=== PATIENT | male | born 1965 | race Caucasian/White ===

== ENCOUNTER 2022-02-28 17:00 | Inpatient (IN) | payer MEDICARE, SELFPAY ==
--- NOTE | ~2022-02-28 | US_ITS ---
EXAMINATION: US VENOUS ULTRASOUND WITH DOPPLER LOWER EXTREMITY, RIGHT CLINICAL INFORMATION: Swelling, pain, erythema COMPARISON: None TECHNIQUE: Ultrasound of the deep veins is performed from the hip to the calf with compression sonography and color and pulse Doppler assessment. Spectral analysis with color-flow imaging is performed. FINDINGS: There is normal venous compression and respiratory variation and augmented flow. The visualized common femoral vein, superficial femoral vein, profunda femoral vein, popliteal vein, and the trifurcation region shows no evidence of deep venous thrombosis. There is no significant popliteal fossa cyst. . If the patient's symptoms persist, followup ultrasound in 5 days 7 days might be of value to exclude proximal propagation from a non-visualized calf vein. Prominent right groin lymph node measuring 1.2 cm in short axis. Ultrasound of the left common femoral vein demonstrates normal flow. Nonspecific left groin lymph node measuring 0.6 cm in short axis. US/US venous duplex LE RT IMPRESSION: No DVT demonstrated in the right lower extremity. If the patient's symptoms persist, followup ultrasound in 5 days 7 days might be of value to exclude proximal propagation from a non-visualized calf vein. Nonspecific prominent right groin lymph node.
--- NOTE | ~2022-02-28 | US_ITS ---
EXAMINATION: US EXTRACRANIAL CAROTID DUPLEX, BILATERAL CLINICAL INFORMATION: CVA. COMPARISON: None TECHNIQUE: Real-time ultrasound and Doppler techniques (integrating B-mode 2-D vascular images, Doppler spectral analysis and color-flow Doppler imaging) were utilized to interrogate the extracranial carotid arteries, the vertebral arteries and proximal subclavian arteries bilaterally. The degree of stenosis is determined by criteria similar to NASCET. FINDINGS: Right Side: 1. There is mild atherosclerotic plaque seen in the bifurcation/proximal ICA region. 2. The common carotid artery PSV proximally is 96 cm/s and distally 105 cm/s. 3. The proximal internal carotid artery velocities are 111 cm/s systolic and 33 cm/s diastolic. 4. The proximal external carotid artery PSV is 205 cm/s. 5. The vertebral artery shows antegrade flow. 6. The subclavian artery waveforms appear unremarkable. Left Side: 1. There is mild atherosclerotic plaque seen in the bifurcation/proximal ICA region. 2. The common carotid artery PSV proximally is 140 cm/s and distally 127 cm/s. 3. The proximal internal carotid artery velocities are 121 cm/s systolic and 26 cm/s diastolic. 4. The proximal external carotid artery PSV is 22 cm/s. 5. The vertebral artery shows antegrade flow. 6. The subclavian artery waveforms appear unremarkable. US/US carotid duplex BI IMPRESSION: 1. RIGHT: Minimal, non-hemodynamically significant stenosis of the proximal right internal carotid artery corresponding to a 0-49% stenosis by velocity criteria. 2. LEFT: Minimal, non-hemodynamically significant stenosis of the proximal left internal carotid artery corresponding to a 0-49% stenosis by velocity criteria.
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
--- NOTE | ~2022-02-28 | MR_ITS ---
EXAMINATION: MR BRAIN WITHOUT CONTRAST CLINICAL INFORMATION: Stroke. COMPARISON: CT head from 03/10/2022. TECHNIQUE: MRI of the brain was obtained using routine sequences without contrast. FINDINGS: Significantly motion degraded exam. Within the limitations of this exam, there appears to be regions of restricted diffusion involving the deep white matter of the left parietal lobe, left hill radiata/caudate body, and potentially paramedian left thalamus. Associated T2 FLAIR hyperintensity in this distribution. No no overt evidence of associated hemorrhagic transformation. No additional restricted diffusion. There is a region of chronic encephalomalacia involving the right hill radiata, caudate head, and lentiform nucleus with hemosiderin staining. Chronic lacunar infarcts of the cerebellum. No evidence of acute hemorrhagic products on heme-sensitive imaging. Findings are superimposed on scattered periventricular, deep white matter, and brainstem T2 FLAIR hyperintensities consistent with mild to moderate underlying microangiopathy. Proportional prominence of the ventricles and sulcal spaces without evidence of obstructive hydrocephalus. No abnormal mass effect. No midline shift. Normal appearance of the pituitary gland. Normal positioning of the cerebellar tonsils. Normal arterial and venous vascular flow voids are present. Normal, homogeneous marrow signal. Mild mucosal thickening of the paranasal sinuses. No signal abnormalities within the mastoids. MR/MR head/brain wo con IMPRESSION: Significantly motion degraded exam. Within this limitation, there appears to be acute to subacute infarcts involving the deep white matter of the left parietal lobe, left hill radiata/caudate body, and potentially paramedian left thalamus. No evidence of hemorrhagic transformation. Chronic lacunar infarcts of the right hill radiata and caudate/lentiform nuclei as well as the cerebellum. Mild to moderate underlying microangiopathy and generalized cerebral volume loss.
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
[2022-02-28 17:18] VITALS: BP 172/88; PULSE 102; RESP 18; TEMP 37; O2SAT 98; BMI 21.4
[2022-02-28 17:38] LABS: MANUAL DIFF FLAG NO
[2022-02-28 17:40] LABS: Basophils Percent Auto 0.3 % (0-2); Eosinophils Percent Auto 0.4 % (0-4); Hematocrit 37.3 % (42.0-52.0); Hemoglobin 12.4 g/dl (14.0-18.0); Imm Gran Abs Auto 0.03 X10*3/uL (0.00-0.03); Imm Gran Pct Auto 0.4 % (0.0-0.4); Lymphocytes Absolute Auto 1.2 X10*3/uL (1.2-4.9); Lymphocytes Percent Auto 17.3 % (20-40); Mean Corpuscular HGB Conc 33.2 g/dl (31.0-36.0); Mean Corpuscular Hemoglobin 28.4 pg (27.0-33.0); Mean Corpuscular Volume 85.4 fL (80.0-98.0); Mean Platelet Volume 9.8 fL (9.4-12.4); Monocytes Absolute Auto 0.3 X10*3/uL (0.1-1.2); Monocytes Percent Auto 4.3 % (2-11); Neutrophils Absolute Auto 5.4 x10*3/uL (2.0-8.3); Neutrophils Percent Auto 77.3 % (45-73); Platelet Count 279 X10*3/uL (160-400); Red Blood Count 4.37 X10*6/uL (4.60-5.80); Red Cell Distribution Width 14.7 % (11.0-16.0)
[2022-02-28 17:45] LABS: Prothrombin Time 11.8 SEC (10.0-13.1)
[2022-02-28 17:56] LABS: COVID-19 Test Negative (Negative); IDNOW Serial# 16C4AD1C; IDNOW Serial# BCCEAD1C; Influenza A Negative (Negative); Influenza B2 Negative (Negative)
[2022-02-28 18:00] LABS: B Type Natriuretic Peptide 22 pg/mL (<100)
[2022-02-28 18:07] LABS: Alanine Aminotransferase 45 U/L (0-40); Albumin Level 4.2 g/dL (3.5-5.0); Alkaline Phosphatase 195 U/L (39-117); Anion Gap 13 (12-20); Aspartate Amino Transferase 23 U/L (5-37); Bilirubin Direct < 0.2 mg/dL (0.0-0.5); Bilirubin Total 0.2 mg/dL (0.0-1.0); Blood Urea Nitrogen 16 mg/dL (9-16); Calcium 9.8 mg/dL (8.4-10.2); Carbon Dioxide 29 mmol/L (22-29); Chloride 97 mmol/L (96-108); Creatinine Clr Calc Pharmacy 80.4; Estimated Glomerular Filt Rate > 60; Glucose Random 548 mg/dL (60-115); Magnesium 2.1 mg/dL (1.6-2.6); Sodium 135 mmol/L (135-145); Total Protein 6.7 g/dL (6.5-8.0)
--- NOTE | 2022-02-28 19:09 | ECG_ITS ---
Test Reason : SEPSIS PROTOCOL Blood Pressure : / mmHG Vent. Rate : 098 BPM Atrial Rate : 098 BPM P-R Int : 146 ms QRS Dur : 072 ms QT Int : 328 ms P-R-T Axes : 056 015 139 degrees QTc Int : 418 ms Normal sinus rhythm T wave abnormality, consider anterolateral ischemia Abnormal ECG No previous ECGs available Referred By: Gena Kinsey Electronically Signed By:Carrington Bautista
[2022-02-28 19:39] LABS: Ammonia 34 umol/L (13-55)
[2022-02-28 19:56] LABS: Ethanol < 10 mg/dL; Magnesium 1.9 mg/dL (1.6-2.6)
--- NOTE | 2022-02-28 19:59 | PHA.MEDREC ---
Pharmacy Consult ? Medication Reconciliation Pharmacy has completed the medication reconciliation. spoke with patient in the ED who said he has not taken any medication in over a year but is supposed to be on BP med, insulin, water pill etc. Patient states he fills all of his mediactions at [facility]. Called [facility] and the patient had about 4 profiles with no medications in any of the profiles.
[2022-02-28 20:05] LABS: Troponin-I High Sensitivity 334.5 ng/L (<3.5-35.0)
[2022-02-28] MEDS: PHENobarbitaL 200 MG, PHENobarbitaL 60 MG 260 MG PO (20:08)
[2022-02-28] MEDS: Insulin Lispro 100 UNIT/ML 3 ML VIAL 12 UNIT SUBCUT (20:08)
[2022-02-28 20:20] LABS: Appearance Urine Clear; Color Urine Yellow; Glucose Urine UA >=1000 mg/dL (Negative); Leukocyte Esterase Urine Negative (Negative); Nitrite Urine Negative (Negative); Specific Gravity - Urine >= 1.030 (1.005-1.025); UMIC TRIGGER UACC YES; Urine Blood Negative (Negative); Urine Ketones Negative (Negative); Urine Protein Negative (Neg-Trace)
--- NOTE | 2022-02-28 20:22 | PC.NURSE ---
this rn assumed care of pt at 1900. iv placed. pt brought down to ct. this rn noticed blood cultures not placed. this rn discussed with eric [employer] provider states does want blood cultures drawn. orders placed. creating delay in administration of iv antibiotic.
[2022-02-28 20:28] LABS: Amphetamine Screen Urine Not Detected (Not Detect); Barbiturates, Urine Not Detected (Not Detect); Benzodiazepines Screen Urine Not Detected (Not Detect); Cannabinoid Screen Urine Not Detected (Not Detect); Cocaine Screen Urine Not Detected (Not Detect); Fentanyl, urine Not Detected (Not Detect); Opiate Screen Urine Not Detected (Not Detect); Phencyclidine Screen Urine Not Detected (Not Detect)
[2022-02-28 20:39] LABS: Bacteria Urine None Seen (None Seen); Hyaline Casts Urine 0-2 /LPF (0-2); RBC Urine 0-2 /HPF (0-2); Squamous Epithelial Cell Urine 0-2 /HPF (0-2); WBC Urine 0-5 /HPF (0-5)
[2022-02-28] MEDS: cefTRIAXone sodium 1 GM in 0.9 % Sodium Chloride 50 ML IV (20:39)
[2022-02-28 20:40] VITALS: BP 162/97; PULSE 102; RESP 18; TEMP 37.7; O2SAT 97
[2022-02-28 20:55] LABS: Lactic Acid 1.3 mmol/L (0.5-2.0)
[2022-02-28 21:15] LABS: Glucose, Whole Blood 272 mg/dL (60-115)
--- NOTE | 2022-02-28 21:19 | PC.NURSE ---
poc recheck 272, provider dejuan zarco notified. no new orders at this time
[2022-02-28 21:29] LABS: Troponin-I High Sensitivity 362.1 ng/L (<3.5-35.0)
[2022-02-28 21:46] VITALS: BP 151/85; PULSE 109; RESP 20; TEMP 36.9; O2SAT 97
--- NOTE | 2022-02-28 21:55 | PC.NURSE ---
this rn called pharmacy regarding status of thiamine. pharmacy states they are mixing now and will bring med down to ed shortly
[2022-02-28] MEDS: Thiamine HCL 500 MG in 0.9 % Sodium Chloride 100 ML 210 MG IV (22:33)
--- NOTE | 2022-02-28 22:39 | MHC.EDTECH ---
[phone] called [facility]. I was not able to speak to anyone because it was an automated service. I followed the chain of numbers to get to patient records. The answering service said the were closed and to call back during their normal business hours. I was able to leave a message including the patients name, and asked them to include any lab information, discharge summary and EKGs. The answering service said it could take up to 24 hours to get information back.
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
[2022-03-01] VITALS (9 sets, daily range): BP systolic 124–162; BP diastolic 73–91; PULSE 88–112; RESP 10–20; TEMP 36.4–37.1; O2SAT 93–97
[2022-03-01] MEDS: Aspirin Enteric Coated 81 MG TABLET.DR PO ×2 (00:15→08:32)
[2022-03-01] MEDS: cephALEXin 500 MG CAPSULE PO ×4 (00:15→23:37)
[2022-03-01] MEDS: Acetaminophen 325 MG TABLET 650 MG PO (00:16)
--- NOTE | 2022-03-01 00:24 | PC.NURSE ---
pt resting comfortably at this time. pt medicated according to apr.. pt provided with sandwich and orange juice at this time pt verbalizes no new needs
--- NOTE | 2022-03-01 00:32 | MHC.EDTECH ---
Call out to [facility] @0017, transferred to ER due to Medical Records closed at night. Sent Medical Release form to
--- NOTE | 2022-03-01 02:12 | PC.NURSE ---
pt medicated according to apr. pt provided blanket at this time. HOB lowered. pt states no new needs at this time
--- NOTE | 2022-03-01 06:27 | PC.NURSE ---
pt incontinent of urine. this rn and edge drummer changed bed linens and brief at this time. seizure precautions remain in place.
[2022-03-01] MEDS: Enoxaparin Sodium 40 MG/0.4 ML SYRINGE SUBCUT (06:41)
[2022-03-01 06:47] LABS: MANUAL DIFF FLAG NO
[2022-03-01 06:56] LABS: Basophils Percent Auto 0.3 % (0-2); Eosinophils Absolute Auto 0.1 X10*3/uL (0.0-0.4); Eosinophils Percent Auto 0.7 % (0-4); Hematocrit 34.4 % (42.0-52.0); Hemoglobin 11.6 g/dl (14.0-18.0); Imm Gran Abs Auto 0.02 X10*3/uL (0.00-0.03); Imm Gran Pct Auto 0.3 % (0.0-0.4); Lymphocytes Absolute Auto 1.6 X10*3/uL (1.2-4.9); Mean Corpuscular HGB Conc 33.7 g/dl (31.0-36.0); Mean Corpuscular Hemoglobin 28.2 pg (27.0-33.0); Mean Corpuscular Volume 83.5 fL (80.0-98.0); Mean Platelet Volume 10.1 fL (9.4-12.4); Monocytes Absolute Auto 0.3 X10*3/uL (0.1-1.2); Monocytes Percent Auto 4.6 % (2-11); Neutrophils Absolute Auto 4.8 x10*3/uL (2.0-8.3); Neutrophils Percent Auto 70.1 % (45-73); Platelet Count 238 X10*3/uL (160-400); Red Blood Count 4.12 X10*6/uL (4.60-5.80); Red Cell Distribution Width 14.6 % (11.0-16.0); White Blood Count 6.8 X10*3/uL (4.8-10.8)
[2022-03-01 07:22] LABS: Anion Gap 12 (12-20); Blood Urea Nitrogen 18 mg/dL (9-16); Carbon Dioxide 24 mmol/L (22-29); Chloride 101 mmol/L (96-108); Estimated Glomerular Filt Rate > 60; Glucose Random 323 mg/dL (60-115); Potassium 4.4 mmol/L (3.3-5.1); Sodium 133 mmol/L (135-145)
[2022-03-01 07:23] LABS: Cholesterol 160 mg/dL; HDL Cholesterol 37 mg/dL; LDL Cholesterol Calculated 106 mg/dl; Triglycerides 89 mg/dL
[2022-03-01 07:35] LABS: Calcium 8.8 mg/dL (8.4-10.2)
[2022-03-01 07:36] LABS: Troponin-I High Sensitivity 320.1 ng/L (<3.5-35.0)
[2022-03-01 08:20] LABS: Glucose, Whole Blood 395 mg/dL (60-115)
[2022-03-01] MEDS: PHENobarbitaL 15 MG TABLET 45 MG PO ×2 (08:31→20:14)
[2022-03-01] MEDS: Thiamine HCL 100 MG TABLET PO (08:32)
[2022-03-01] MEDS: Folic Acid 1 MG TABLET PO (08:32)
[2022-03-01] MEDS: Atorvastatin Calcium 80 MG TABLET PO (08:32)
[2022-03-01] MEDS: Insulin Lispro 100 UNIT/ML 3 ML VIAL SUBCUT ×4 (08:32→20:16)
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
[2022-03-01] MEDS: Thiamine HCL 200 MG in 0.9 % Sodium Chloride 100 ML 204 MG IV ×3 (09:56→20:17)
--- NOTE | 2022-03-01 10:54 | MHC.CM.PN ---
Patient is here with Encephalopathy and increased Confusion and ETOH Withdrawal; CM spoke with Sister/Sultana at listed #. Patient was just kicked out of a [place] [facility] r/t his Urinary Incontinence and came to this area where his Parents and Sister live (none of whom are able to provide significant support ). PT is recommending STR and Sultana approved the initiation of a broad SNF search. Patient will need Addiction Medicine referral. CM has initiated and will follow for dc planning. Sultana believes that Patient has received some covid vax but she is unsure of his PCP situation.
[2022-03-01 13:57] LABS: Glucose, Whole Blood 293 mg/dL (60-115)
--- NOTE | 2022-03-01 14:18 | PM.EVENT ---
Event Note Date of Service: 03/01/22 Event Note: Patient already seen and examined by hospitalist team this morning. Seen and examined again, mental status somewhat improving Answering simple questions Physical exam: Unchanged from H&P except mental status is alert oriented x2 at least, follow simple questions and commands. Moves all extremities. Assessment and plan coordinated in H&P note. MRI pending, neurology consult also pending. cardiology eval also pending -denies any chest pain,trops flat in 320 range on asa ,statin alcohol abuse : mild tremers continue pheonbarbital, thiamine ,folic acid Time Spent With Patient Time: Total time managing care of this patient today ____ minutes.
[2022-03-01 16:34] LABS: Glucose, Whole Blood 309 mg/dL (60-115)
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
[2022-03-01 19:42] LABS: Glucose, Whole Blood 279 mg/dL (60-115)
[2022-03-02] VITALS (7 sets, daily range): BP systolic 121–140; BP diastolic 66–84; PULSE 80–103; RESP 14–17; TEMP 36.1–36.9; O2SAT 95–98
[2022-03-02] MEDS: Enoxaparin Sodium 40 MG/0.4 ML SYRINGE SUBCUT (05:42)
--- NOTE | 2022-03-02 07:00 | CA_ITS ---
Transthoracic Echocardiogram Patient (Last, First, Middle): Sukumar Correa, Gender: Male Date of : 1965 Age: 56 Procedure Date: 03/02/2022 Procedure Type: Transthoracic Echocardiogram Location: [facility] Height: 172.72 cm Weight: 63.96 kg BSA: 1.76 m2 Heart Rate: bpm BP: 140 / 83 mmHg Audio Narrator: Referring MD: Juanjose Archer MD Symptoms: CVA, please do bubble Study Quality: Excellent ECG Rhythm: Sinus Conclusions: - Normal left ventricular cavity size. There is mildly increased left ventricular wall thickness. The left ventricular systolic function is normal. The visually estimated ejection fraction is between 60-65%. - Normal right ventricular cavity size and systolic function. - The left atrium is normal in size. There is no evidence of interatrial shunt by color Doppler and contrast. The right atrium is normal in size. Findings Left Ventricle Normal left ventricular cavity size. There is mildly increased left ventricular wall thickness. The left ventricular systolic function is normal. The visually estimated ejection fraction is between 60-65%. There is no evidence of regional wall motion abnormalities. Diastolic function is normal for age. Right Ventricle Normal right ventricular cavity size and systolic function. Atria The left atrium is normal in size. There is no evidence of interatrial shunt by color Doppler and contrast. The right atrium is normal in size. Aortic Valve Normal aortic valve structure and function. There is no aortic valve stenosis. There is no aortic valve regurgitation. Mitral Valve Normal mitral valve structure and function. There is trace mitral valve regurgitation. There is no mitral valve stenosis. Pulmonic Valve Normal pulmonic valve structure and function. There is no pulmonic valve regurgitation. Tricuspid Valve Normal tricuspid valve structure and function. There is trace tricuspid valve regurgitation. Normal right atrial pressure. There is no evidence of pulmonary hypertension. Great Vessels All visible segments of the aorta are normal in size. The visualized portions of the pulmonary artery and branches are normal. Venous The inferior vena cava is normal in size and collapses greater than 50% with inspiration. Pericardium/Pleural There is no evidence of pericardial effusion. Prior Study Comparison No prior study available for comparison. Measurements 2D Linear Measurements IVSd: 1.25 0.6-0.9/0.6-1.0 cm LVIDd: 3.72 3.9-5.3/4.2-5.9 cm LVIDd Index: 2.11 2.4-3.2/2.2-3.1 cm/m2 LVIDs: 2.37 2.0-3.6 cm LVPWd: 1.25 0.7-1.1 cm Ao Root: 2.60 2.1-3.5 cm LA Diam: 3.20 2.7-3.8/3.0-4.0 cm LAIDs Index: 1.82 1.5-2.3 cm/m2 LV Mass: 196.73 67-162/88-224 g LV Mass Index: 111.78 43-95/49-115 g/m2 LVOT Diam: 2.00 3.0+(-)1.3 cm Mitral Valve MV Pk E: 0.87 MV PK A: 1.03 MV Decel Time: 132.00 E/A: 0.80 E'Lateral: 11.30 E'Medial: 8.05 E/E' Med: 10.80 E/E' Lat: 7.70 PHT: 39.00 MVA PHT: 5.64 Decel Caldwell: 6.58 Aortic Valve AoV Pk Jonathan: 1.95 AoV Mn Jonathan: 1.32 AoV VTI: 0.36 AoV Pk Grad: 15.00 Aov Mn Grad: 8.00 JALEESA Cont.VTI: 2.11 LVOT LVOT Pk Jonathan: 1.22 LVOT Mn Jonathan: 0.77 LVOT VTI: 0.24 LVOT Pk Grad: 6.00 LVOT Mn Grad: 3.00 LVOT Diam: 2.00 LVOT Area: 3.14 Diastolic Function MV Pk E: 0.87 MV Pk A: 1.03 E/A: 0.80 E'Medial: 8.05 E/E' Med: 10.80 E' Laterial: 11.30 E/E' Lat: 7.70 Right Ventricle TAPSE (mm): 23.00 TVS' Jonathan: 11.00 Tricuspid Valve TR Pk Jonathan: 1.91 TR Pk Grad: 15.00 RA Press: 3.00 RVSP: 18.00 Great Vessels Aorta Ao Root-2D: 2.60 2.0-3.7 cm Ao Asc: 2.60 2.1-3.4 cm Pulmonary Valve PV Pk Jonathan: 1.01 Peak PV Grad: 4.00 Updated in Other Vendor System with Status of Final Carrington Bautista MD electronically signed on 03/02/2022 2:35:59 PM with status of Final
[2022-03-02 07:10] LABS: Glucose, Whole Blood 237 mg/dL (60-115)
[2022-03-02] MEDS: Atorvastatin Calcium 80 MG TABLET PO (07:30)
[2022-03-02] MEDS: Aspirin Enteric Coated 81 MG TABLET.DR PO (07:31)
[2022-03-02] MEDS: Folic Acid 1 MG TABLET PO (07:31)
[2022-03-02] MEDS: Insulin Lispro 100 UNIT/ML 3 ML VIAL SUBCUT ×3 (07:31→20:28)
[2022-03-02] MEDS: cephALEXin 500 MG CAPSULE PO ×3 (07:31→22:05)
[2022-03-02] MEDS: PHENobarbitaL 15 MG TABLET 45 MG PO ×2 (07:31→20:30)
[2022-03-02] MEDS: Thiamine HCL 200 MG in 0.9 % Sodium Chloride 100 ML 204 MG IV ×3 (07:32→22:05)
--- NOTE | 2022-03-02 08:34 | P.CDIC_ITS ---
CDI Concurrent Query Documentation Clarification: PHYSICIAN'S DOCUMENTATION REQUEST Date of Query: 03/02/22 0835 Patient Name: Sukumar Correa Admit Date: 03/01/22 Dear Doctor, A review of the medical record indicates additional documentation may be needed. Please review below and update the documentation accordingly. Clinical Indicators: Risk Factors/Clinical Indicators/Treatments H&P 03/01 - Encephalopathy possibly 2nd to alcohol abuse as well as acute on chronic infarct. Increased confusion, alert only to self, not alert to place and time, does not know where he is. Was traveling got confused along with the way, doesn't know how he got to his sisters house. Event note 03/01 - unchanged from H&P except mental status is alert and oriented. Based on the above, please further specify, in the Progress Notes, the known or suspected type of the documented encephalopathy: POA, Resolved - * Metabolic * Toxic * Toxic metabolic * Alcoholic * Other (please specify) * Unable to determine Use of terms such as suspected, likely, concern for, or probable (associated with a specific diagnosis that is being evaluated, monitored, or treated as if it exists) are acceptable and can be coded in the inpatient setting, when documented at the time of discharge. Thank you, Mouna Brumfield [facility], CDIS Extension: [phone] Please use your independent medical judgment in providing your response. THIS QUERY IS PART OF THE PERMANENT MEDICAL RECORD Provider Response: Other Other Diagnosis: Toxic metabolic encephalopathy
[2022-03-02 11:32] LABS: Glucose, Whole Blood 394 mg/dL (60-115)
--- NOTE | 2022-03-02 14:08 | MHC.STROKE ---
Addendum entered by Mesha Guadarrama RN 03/02/22 14:18: WE ALSO DISCUSSED SMOKING CESSATION AND I WOULD RECOMMEND A NICOTINE PATCH IF HE AGREES. Original Note: I MET WITH THE PATIENT TODAY TO DISCUSS HIS STROKE DIAGNOSIS AND MRI RESULTS. HE HAD A RECENT STROKE WHILE HE WAS IN [place], THIS TIME HE HAS ANOTHER SMAL ACUTE STROKE ON THE LEFT. I DID EXPLAIN THIS TO HIM. WE DISCUSSED HIS RISK FACTORS AND COMPLIANCE. I DISCUSSED THIS WITH CASE MGT. AND ASKED DR HUTCHISON FOR A CARE TEAM CONSULT FOR ETOH. I ANSWERED HIS QUESTIONS, HE WAS VERY COOPERATIVE AND RECEPTIVE. I WILL CONTINUE TO FOLLOW.
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
--- NOTE | 2022-03-02 15:39 | MHC.CM.PN ---
per rounds pt not dc ready will conitue to follow
[2022-03-02 16:12] LABS: Glucose, Whole Blood 144 mg/dL (60-115)
[2022-03-02] MEDS: metFORMIN HCl 500 MG TABLET PO (17:19)
[2022-03-02 20:19] LABS: Glucose, Whole Blood 327 mg/dL (60-115)
[2022-03-03] VITALS (7 sets, daily range): BP systolic 115–138; BP diastolic 62–79; PULSE 77–103; RESP 16–18; TEMP 36.4–37; O2SAT 94–97
[2022-03-03 07:34] LABS: Glucose, Whole Blood 353 mg/dL (60-115)
[2022-03-03] MEDS: Thiamine HCL 200 MG in 0.9 % Sodium Chloride 100 ML 204 MG IV ×3 (08:13→22:00)
[2022-03-03] MEDS: Insulin Lispro 100 UNIT/ML 3 ML VIAL SUBCUT ×4 (08:13→20:36)
[2022-03-03] MEDS: Aspirin Enteric Coated 81 MG TABLET.DR PO (08:14)
[2022-03-03 08:15] LABS: Hemoglobin A1c % > 14.0 %
[2022-03-03] MEDS: PHENobarbitaL 15 MG TABLET PO ×2 (08:15→20:37)
[2022-03-03] MEDS: metFORMIN HCl 500 MG TABLET PO ×2 (08:15→16:51)
[2022-03-03] MEDS: cephALEXin 500 MG CAPSULE PO ×3 (08:15→22:00)
[2022-03-03] MEDS: Folic Acid 1 MG TABLET PO (08:15)
[2022-03-03] MEDS: Atorvastatin Calcium 80 MG TABLET PO (08:15)
--- NOTE | 2022-03-03 11:11 | MHC.CM.PN ---
Per ROUNDS discussion, Patient is medically cleared for dc to rehab; CM has referred to [facility] and CM will continue to follow.
[2022-03-03 11:32] LABS: Glucose, Whole Blood 286 mg/dL (60-115)
[2022-03-03] MEDS: glipiZIDE 5 MG TABLET PO ×2 (12:50→16:51)
--- NOTE | 2022-03-03 14:43 | MHC.CM.PN ---
CM assisted Patient in completing a HCP.
[2022-03-03 15:22] LABS: Glucose, Whole Blood 249 mg/dL (60-115)
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
[2022-03-03 19:51] LABS: Glucose, Whole Blood 297 mg/dL (60-115)
[2022-03-04 03:59] VITALS: BP 128/64; PULSE 80; RESP 20; TEMP 37.2; O2SAT 97
[2022-03-04] MEDS: Enoxaparin Sodium 40 MG/0.4 ML SYRINGE SUBCUT (05:14)
[2022-03-04 07:11] VITALS: BP 136/79; PULSE 87; RESP 16; TEMP 36.7; O2SAT 93
[2022-03-04 07:27] LABS: Glucose, Whole Blood 252 mg/dL (60-115)
[2022-03-04] MEDS: glipiZIDE 5 MG TABLET PO (07:42)
[2022-03-04] MEDS: Atorvastatin Calcium 80 MG TABLET PO (07:42)
[2022-03-04] MEDS: Folic Acid 1 MG TABLET PO (07:42)
[2022-03-04] MEDS: Insulin Lispro 100 UNIT/ML 3 ML VIAL SUBCUT ×4 (07:42→20:49)
[2022-03-04] MEDS: Aspirin Enteric Coated 81 MG TABLET.DR PO (07:43)
[2022-03-04] MEDS: cephALEXin 500 MG CAPSULE PO ×3 (07:43→20:50)
[2022-03-04] MEDS: metFORMIN HCl 500 MG TABLET PO ×2 (07:43→17:16)
[2022-03-04] MEDS: PHENobarbitaL 15 MG TABLET PO ×2 (07:43→20:50)
[2022-03-04] MEDS: Thiamine HCL 200 MG in 0.9 % Sodium Chloride 100 ML 204 MG IV ×2 (09:45→17:15)
[2022-03-04 10:59] LABS: Glucose, Whole Blood 263 mg/dL (60-115)
[2022-03-04 11:09] VITALS: BP 131/74; PULSE 82; RESP 16; TEMP 36.3; O2SAT 97
[2022-03-04] MEDS: Nicotine 21 MG PATCH.TD24 TRANSDERMA (11:58)
--- NOTE | 2022-03-04 13:00 | MHC.RECOVRN ---
Met with pt in 454 to discuss alcohol use. Pt laying in bed, awake and easily engages in conversation. Pt reports drinking 30 beers plus leonela x 3-4 days. Is unable to recall how long he has been drinking, however, reports it has been most of his life. Pt reports having moved to [place] from [place] about a week ago. Denies tx for AUD in the past. Pt denies attempting to abstain or reduce use. Pt provided with recovery resources and supports. Recovery Team available if needed further.
[2022-03-04 15:43] VITALS: BP 125/75; PULSE 89; RESP 18; TEMP 36.4; O2SAT 94
[2022-03-04 16:02] LABS: Glucose, Whole Blood 262 mg/dL (60-115)
[2022-03-04] MEDS: glipiZIDE 5 MG TABLET 7.5 MG PO (17:16)
[2022-03-04 20:00] VITALS: BP 132/72; PULSE 87; RESP 18; TEMP 36.9; O2SAT 97
[2022-03-04 20:41] LABS: Glucose, Whole Blood 314 mg/dL (60-115)
[2022-03-04] MEDS: Thiamine HCL 100 MG TABLET PO (20:49)
[2022-03-04 23:37] VITALS: BP 149/83; PULSE 88; RESP 18; TEMP 36.4; O2SAT 97
[2022-03-05] MEDS: Zolpidem Tartrate 5 MG TABLET PO (02:18)
[2022-03-05 03:35] VITALS: BP 138/64; PULSE 65; RESP 18; TEMP 37.1; O2SAT 96
[2022-03-05] MEDS: Enoxaparin Sodium 40 MG/0.4 ML SYRINGE SUBCUT (05:47)
[2022-03-05 07:03] VITALS: BP 117/69; PULSE 78; RESP 20; TEMP 36.4; O2SAT 94
[2022-03-05 07:25] LABS: Glucose, Whole Blood 228 mg/dL (60-115)
[2022-03-05] MEDS: Insulin Lispro 100 UNIT/ML 3 ML VIAL SUBCUT ×4 (08:21→20:07)
[2022-03-05] MEDS: Nicotine 21 MG PATCH.TD24 TRANSDERMA (08:21)
[2022-03-05] MEDS: Thiamine HCL 100 MG TABLET PO ×2 (08:23→20:08)
[2022-03-05] MEDS: metFORMIN HCl 500 MG TABLET PO (08:23)
[2022-03-05] MEDS: glipiZIDE 5 MG TABLET 7.5 MG PO (08:23)
[2022-03-05] MEDS: Aspirin Enteric Coated 81 MG TABLET.DR PO (08:23)
[2022-03-05] MEDS: cephALEXin 500 MG CAPSULE PO ×3 (08:23→22:34)
[2022-03-05] MEDS: Folic Acid 1 MG TABLET PO (08:23)
[2022-03-05] MEDS: Atorvastatin Calcium 80 MG TABLET PO (08:23)
[2022-03-05] MEDS: PHENobarbitaL 15 MG TABLET PO (08:24)
[2022-03-05 10:44] VITALS: BP 116/73; PULSE 76; RESP 20; TEMP 37.1; O2SAT 97
[2022-03-05 11:10] LABS: Glucose, Whole Blood 247 mg/dL (60-115)
[2022-03-05] MEDS: metFORMIN HCl 850 MG TABLET PO ×2 (12:11→17:06)
[2022-03-05 15:35] VITALS: BP 128/77; PULSE 83; RESP 19; TEMP 36.3; O2SAT 96
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
[2022-03-05 15:58] LABS: Glucose, Whole Blood 269 mg/dL (60-115)
[2022-03-05] MEDS: glipiZIDE 10 MG TABLET PO (17:06)
[2022-03-05 19:33] VITALS: BP 131/71; PULSE 84; RESP 19; TEMP 36.7; O2SAT 98
[2022-03-05 19:36] LABS: Glucose, Whole Blood 256 mg/dL (60-115)
[2022-03-05] MEDS: Acetaminophen 325 MG TABLET 650 MG PO (20:08)
[2022-03-05 23:32] VITALS: BP 123/68; PULSE 79; RESP 18; TEMP 37; O2SAT 97
[2022-03-06 03:20] VITALS: BP 134/68; PULSE 68; RESP 20; TEMP 37; O2SAT 99
[2022-03-06] MEDS: Enoxaparin Sodium 40 MG/0.4 ML SYRINGE SUBCUT (06:02)
[2022-03-06 07:04] VITALS: BP 125/66; PULSE 77; RESP 20; TEMP 36.9; O2SAT 97
[2022-03-06 07:29] LABS: Glucose, Whole Blood 307 mg/dL (60-115)
[2022-03-06] MEDS: metFORMIN HCl 850 MG TABLET PO ×2 (07:40→17:13)
[2022-03-06] MEDS: glipiZIDE 10 MG TABLET PO ×2 (07:40→17:13)
[2022-03-06] MEDS: Thiamine HCL 100 MG TABLET PO ×2 (07:40→20:44)
[2022-03-06] MEDS: Folic Acid 1 MG TABLET PO (07:40)
[2022-03-06] MEDS: Atorvastatin Calcium 80 MG TABLET PO (07:40)
[2022-03-06] MEDS: PHENobarbitaL 15 MG TABLET PO (07:40)
[2022-03-06] MEDS: Aspirin Enteric Coated 81 MG TABLET.DR PO (07:40)
[2022-03-06] MEDS: cephALEXin 500 MG CAPSULE PO ×3 (07:41→23:51)
[2022-03-06] MEDS: Nicotine 21 MG PATCH.TD24 TRANSDERMA (07:41)
[2022-03-06] MEDS: Insulin Lispro 100 UNIT/ML 3 ML VIAL SUBCUT ×3 (07:41→21:51)
[2022-03-06] MEDS: Acetaminophen 325 MG TABLET 650 MG PO (07:50)
[2022-03-06 10:59] VITALS: BP 128/80; PULSE 97; RESP 20; TEMP 37.3; O2SAT 98
[2022-03-06 11:19] LABS: Glucose, Whole Blood 118 mg/dL (60-115)
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
[2022-03-06 15:31] LABS: Glucose, Whole Blood 302 mg/dL (60-115)
[2022-03-06 15:48] VITALS: BP 119/71; PULSE 84; RESP 19; TEMP 36.2; O2SAT 97
[2022-03-06 20:00] VITALS: BP 119/70; PULSE 94; RESP 18; TEMP 36.2; O2SAT 100
[2022-03-06 20:51] LABS: Glucose, Whole Blood 280 mg/dL (60-115)
[2022-03-06 23:54] VITALS: BP 142/74; PULSE 89; RESP 18; TEMP 37.1; O2SAT 98
[2022-03-07 04:00] VITALS: BP 149/76; PULSE 83; RESP 20; TEMP 36.4; O2SAT 98
[2022-03-07] MEDS: Enoxaparin Sodium 40 MG/0.4 ML SYRINGE SUBCUT (06:19)
[2022-03-07 07:22] VITALS: BP 117/69; PULSE 83; RESP 20; TEMP 36.9; O2SAT 98
[2022-03-07 07:56] LABS: Glucose, Whole Blood 250 mg/dL (60-115)
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
[2022-03-07] MEDS: Thiamine HCL 100 MG TABLET PO ×2 (08:55→20:10)
[2022-03-07] MEDS: Aspirin Enteric Coated 81 MG TABLET.DR PO (08:55)
[2022-03-07] MEDS: metFORMIN HCl 850 MG TABLET PO ×2 (08:55→16:38)
[2022-03-07] MEDS: glipiZIDE 10 MG TABLET PO ×2 (08:55→16:39)
[2022-03-07] MEDS: cephALEXin 500 MG CAPSULE PO ×3 (08:55→23:33)
[2022-03-07] MEDS: Atorvastatin Calcium 80 MG TABLET PO (08:55)
[2022-03-07] MEDS: Nicotine 21 MG PATCH.TD24 TRANSDERMA (08:56)
[2022-03-07] MEDS: Insulin Lispro 100 UNIT/ML 3 ML VIAL SUBCUT ×4 (08:56→20:10)
[2022-03-07] MEDS: Folic Acid 1 MG TABLET PO (08:56)
[2022-03-07 11:17] VITALS: BP 114/70; PULSE 96; RESP 20; TEMP 36.9; O2SAT 100
[2022-03-07 11:22] LABS: Glucose, Whole Blood 348 mg/dL (60-115)
--- NOTE | 2022-03-07 12:56 | MHC.CM.PN ---
pt is ready for dc bed search continues
[2022-03-07 14:54] VITALS: BP 131/60; PULSE 90; RESP 20; TEMP 36.7; O2SAT 96
[2022-03-07 16:13] LABS: Glucose, Whole Blood 324 mg/dL (60-115)
[2022-03-07 19:08] VITALS: BP 120/65; PULSE 86; RESP 20; TEMP 36.3; O2SAT 97
[2022-03-07 19:49] LABS: Glucose, Whole Blood 278 mg/dL (60-115)
[2022-03-07 23:37] VITALS: BP 131/86; PULSE 89; RESP 20; TEMP 37; O2SAT 100
[2022-03-08 03:11] VITALS: BP 133/74; PULSE 88; RESP 20; TEMP 36.4; O2SAT 99
[2022-03-08] MEDS: Enoxaparin Sodium 40 MG/0.4 ML SYRINGE SUBCUT (05:54)
[2022-03-08 06:47] LABS: Creatinine Clr Calc Pharmacy 94.3; Estimated Glomerular Filt Rate > 60
[2022-03-08 07:17] VITALS: BP 125/71; PULSE 76; RESP 17; TEMP 36.8; O2SAT 98
[2022-03-08 07:47] LABS: Glucose, Whole Blood 232 mg/dL (60-115)
[2022-03-08] MEDS: Thiamine HCL 100 MG TABLET PO ×2 (08:09→20:41)
[2022-03-08] MEDS: Aspirin Enteric Coated 81 MG TABLET.DR PO (08:09)
[2022-03-08] MEDS: metFORMIN HCl 850 MG TABLET PO ×2 (08:09→16:29)
[2022-03-08] MEDS: glipiZIDE 10 MG TABLET PO ×2 (08:09→16:29)
[2022-03-08] MEDS: Nicotine 21 MG PATCH.TD24 TRANSDERMA (08:09)
[2022-03-08] MEDS: Folic Acid 1 MG TABLET PO (08:09)
[2022-03-08] MEDS: Atorvastatin Calcium 80 MG TABLET PO (08:09)
[2022-03-08] MEDS: cephALEXin 500 MG CAPSULE PO ×2 (08:09→16:29)
[2022-03-08] MEDS: Insulin Lispro 100 UNIT/ML 3 ML VIAL SUBCUT ×4 (08:10→20:41)
[2022-03-08 09:28] VITALS: PULSE 99
[2022-03-08 11:22] LABS: Glucose, Whole Blood 260 mg/dL (60-115)
[2022-03-08 11:38] VITALS: BP 120/86; PULSE 74; RESP 18; TEMP 36.6; O2SAT 98
[2022-03-08 15:28] LABS: Glucose, Whole Blood 389 mg/dL (60-115)
[2022-03-08 15:33] VITALS: BP 123/68; PULSE 88; RESP 16; TEMP 36.6; O2SAT 96
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
[2022-03-08 20:00] VITALS: BP 130/73; PULSE 93; RESP 20; TEMP 36.8; O2SAT 100
[2022-03-08 21:12] LABS: Glucose, Whole Blood 359 mg/dL (60-115)
[2022-03-09] VITALS (7 sets, daily range): BP systolic 119–146; BP diastolic 63–75; PULSE 70–95; RESP 16–20; TEMP 36.3–36.8; O2SAT 95–100
[2022-03-09] MEDS: cephALEXin 500 MG CAPSULE PO ×4 (00:27→23:48)
[2022-03-09] MEDS: Acetaminophen 325 MG TABLET 650 MG PO ×2 (00:30→20:30)
--- NOTE | 2022-03-09 00:51 | PC.NURSE ---
2030; Bedtime poc 359, per sliding scale [address] Ewing made aware, no additional insulin at this time.
[2022-03-09] MEDS: Enoxaparin Sodium 40 MG/0.4 ML SYRINGE SUBCUT (05:59)
[2022-03-09 07:48] LABS: Glucose, Whole Blood 225 mg/dL (60-115)
[2022-03-09] MEDS: Insulin Lispro 100 UNIT/ML 3 ML VIAL SUBCUT ×4 (08:01→20:27)
[2022-03-09] MEDS: Atorvastatin Calcium 80 MG TABLET PO (08:01)
[2022-03-09] MEDS: metFORMIN HCl 850 MG TABLET PO ×2 (08:01→17:15)
[2022-03-09] MEDS: glipiZIDE 10 MG TABLET PO ×2 (08:02→17:15)
[2022-03-09] MEDS: Nicotine 21 MG PATCH.TD24 TRANSDERMA (08:02)
[2022-03-09] MEDS: Aspirin Enteric Coated 81 MG TABLET.DR PO (08:02)
[2022-03-09] MEDS: Thiamine HCL 100 MG TABLET PO ×2 (08:02→20:27)
[2022-03-09] MEDS: Folic Acid 1 MG TABLET PO (08:02)
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
[2022-03-09 11:40] LABS: Glucose, Whole Blood 313 mg/dL (60-115)
[2022-03-09 16:33] LABS: Glucose, Whole Blood 346 mg/dL (60-115)
[2022-03-09 20:22] LABS: Glucose, Whole Blood 194 mg/dL (60-115)
[2022-03-10] VITALS (7 sets, daily range): BP systolic 104–146; BP diastolic 56–77; PULSE 77–98; RESP 16–20; TEMP 36.6–36.9; O2SAT 97–100
[2022-03-10 07:40] LABS: Glucose, Whole Blood 225 mg/dL (60-115)
[2022-03-10] MEDS: Folic Acid 1 MG TABLET PO (08:19)
[2022-03-10] MEDS: Atorvastatin Calcium 80 MG TABLET PO (08:19)
[2022-03-10] MEDS: metFORMIN HCl 850 MG TABLET PO ×2 (08:19→16:45)
[2022-03-10] MEDS: cephALEXin 500 MG CAPSULE PO ×2 (08:19→16:45)
[2022-03-10] MEDS: Thiamine HCL 100 MG TABLET PO ×2 (08:19→20:24)
[2022-03-10] MEDS: glipiZIDE 10 MG TABLET PO ×2 (08:19→16:45)
[2022-03-10] MEDS: Nicotine 21 MG PATCH.TD24 TRANSDERMA (08:19)
[2022-03-10] MEDS: Aspirin Enteric Coated 81 MG TABLET.DR PO (08:19)
[2022-03-10] MEDS: Insulin Lispro 100 UNIT/ML 3 ML VIAL SUBCUT ×4 (08:20→20:25)
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
[2022-03-10 10:57] LABS: Glucose, Whole Blood 262 mg/dL (60-115)
[2022-03-10 15:47] LABS: Glucose, Whole Blood 154 mg/dL (60-115)
[2022-03-10 19:44] LABS: Glucose, Whole Blood 339 mg/dL (60-115)
[2022-03-11] VITALS (7 sets, daily range): BP systolic 118–143; BP diastolic 62–77; PULSE 76–97; RESP 16–20; TEMP 36.4–37.1; O2SAT 95–99
--- NOTE | 2022-03-11 07:18 | MHC.CM.PN ---
PT is no longer recommending STR but indicates that Patient is interested in [facility]). Recovery Team/Heidi appears to already be involved and CM will continue to follow.
[2022-03-11 07:24] LABS: Glucose, Whole Blood 286 mg/dL (60-115)
[2022-03-11] MEDS: metFORMIN HCl 850 MG TABLET PO ×2 (07:56→16:50)
[2022-03-11] MEDS: Atorvastatin Calcium 80 MG TABLET PO (07:56)
[2022-03-11] MEDS: Aspirin Enteric Coated 81 MG TABLET.DR PO (07:56)
[2022-03-11] MEDS: Folic Acid 1 MG TABLET PO (07:56)
[2022-03-11] MEDS: glipiZIDE 10 MG TABLET PO ×2 (07:56→16:50)
[2022-03-11] MEDS: Nicotine 21 MG PATCH.TD24 TRANSDERMA (07:56)
[2022-03-11] MEDS: Thiamine HCL 100 MG TABLET PO ×2 (07:56→20:00)
[2022-03-11] MEDS: Insulin Lispro 100 UNIT/ML 3 ML VIAL SUBCUT ×4 (07:57→20:00)
[2022-03-11 12:15] LABS: Glucose, Whole Blood 201 mg/dL (60-115)
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
[2022-03-11 15:49] LABS: Glucose, Whole Blood 291 mg/dL (60-115)
[2022-03-11 19:49] LABS: Glucose, Whole Blood 342 mg/dL (60-115)
[2022-03-12 03:39] VITALS: BP 160/74; PULSE 86; RESP 20; TEMP 36.2; O2SAT 96
[2022-03-12 07:16] VITALS: BP 153/81; PULSE 82; RESP 18; TEMP 36.6; O2SAT 98
[2022-03-12 07:30] LABS: Glucose, Whole Blood 391 mg/dL (60-115)
[2022-03-12] MEDS: Insulin Lispro 100 UNIT/ML 3 ML VIAL SUBCUT ×5 (08:00→21:58)
[2022-03-12] MEDS: Folic Acid 1 MG TABLET PO (08:01)
[2022-03-12] MEDS: Atorvastatin Calcium 80 MG TABLET PO (08:01)
[2022-03-12] MEDS: glipiZIDE 10 MG TABLET PO ×2 (08:01→16:55)
[2022-03-12] MEDS: Nicotine 21 MG PATCH.TD24 TRANSDERMA (08:01)
[2022-03-12] MEDS: metFORMIN HCl 850 MG TABLET PO (08:01)
[2022-03-12] MEDS: Thiamine HCL 100 MG TABLET PO ×2 (08:01→21:57)
[2022-03-12] MEDS: Aspirin Enteric Coated 81 MG TABLET.DR PO (08:01)
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
[2022-03-12 11:44] LABS: Glucose, Whole Blood 179 mg/dL (60-115)
[2022-03-12 15:22] VITALS: BP 132/62; PULSE 80; RESP 18; TEMP 36.3; O2SAT 97
[2022-03-12 16:34] LABS: Glucose, Whole Blood 400 mg/dL (60-115)
[2022-03-12] MEDS: metFORMIN HCl 1,000 MG TABLET 1000 MG PO (16:55)
[2022-03-12 21:25] LABS: Glucose, Whole Blood 261 mg/dL (60-115)
[2022-03-12] MEDS: Acetaminophen 325 MG TABLET 650 MG PO (21:57)
[2022-03-12 23:48] VITALS: BP 134/69; PULSE 96; RESP 15; TEMP 36.6; O2SAT 98
[2022-03-13 03:46] VITALS: BP 137/78; PULSE 87; RESP 16; O2SAT 98
[2022-03-13] MEDS: Enoxaparin Sodium 40 MG/0.4 ML SYRINGE SUBCUT (05:54)
[2022-03-13 07:25] VITALS: BP 145/77; PULSE 78; RESP 18; TEMP 36.6; O2SAT 96
[2022-03-13 07:34] LABS: Glucose, Whole Blood 204 mg/dL (60-115)
[2022-03-13] MEDS: Insulin Lispro 100 UNIT/ML 3 ML VIAL SUBCUT ×7 (08:35→20:14)
[2022-03-13] MEDS: Atorvastatin Calcium 80 MG TABLET PO (08:36)
[2022-03-13] MEDS: Nicotine 21 MG PATCH.TD24 TRANSDERMA (08:36)
[2022-03-13] MEDS: metFORMIN HCl 1,000 MG TABLET 1000 MG PO ×2 (08:36→16:58)
[2022-03-13] MEDS: Folic Acid 1 MG TABLET PO (08:37)
[2022-03-13] MEDS: Thiamine HCL 100 MG TABLET PO ×2 (08:37→20:13)
[2022-03-13] MEDS: Aspirin Enteric Coated 81 MG TABLET.DR PO (08:37)
[2022-03-13] MEDS: glipiZIDE 10 MG TABLET PO ×2 (08:37→16:58)
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
[2022-03-13 11:10] LABS: Glucose, Whole Blood 296 mg/dL (60-115)
[2022-03-13 15:35] VITALS: BP 125/68; PULSE 78; RESP 18; TEMP 36.8; O2SAT 98
[2022-03-13 16:07] LABS: Glucose, Whole Blood 188 mg/dL (60-115)
[2022-03-13 20:00] LABS: Glucose, Whole Blood 292 mg/dL (60-115)
[2022-03-13] MEDS: Acetaminophen 325 MG TABLET 650 MG PO (20:13)
[2022-03-13 23:22] VITALS: BP 111/65; PULSE 86; RESP 20; TEMP 36.8
[2022-03-14] MEDS: Enoxaparin Sodium 40 MG/0.4 ML SYRINGE SUBCUT (06:03)
[2022-03-14 07:08] LABS: Glucose, Whole Blood 176 mg/dL (60-115)
[2022-03-14 07:20] VITALS: BP 147/83; PULSE 82; RESP 20; TEMP 36.5; O2SAT 100
[2022-03-14] MEDS: metFORMIN HCl 1,000 MG TABLET 1000 MG PO ×2 (07:53→17:26)
[2022-03-14] MEDS: glipiZIDE 10 MG TABLET PO ×2 (07:54→17:26)
[2022-03-14] MEDS: Atorvastatin Calcium 80 MG TABLET PO (07:54)
[2022-03-14] MEDS: Aspirin Enteric Coated 81 MG TABLET.DR PO (07:54)
[2022-03-14] MEDS: Thiamine HCL 100 MG TABLET PO ×2 (07:54→19:35)
[2022-03-14] MEDS: Folic Acid 1 MG TABLET PO (07:54)
[2022-03-14] MEDS: Nicotine 21 MG PATCH.TD24 TRANSDERMA (07:54)
[2022-03-14] MEDS: Insulin Lispro 100 UNIT/ML 3 ML VIAL SUBCUT ×8 (07:55→19:34)
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
--- NOTE | 2022-03-14 09:36 | MHC.CM.PN ---
Broad SNF search referrals have been updated and CM will continue to follow.
[2022-03-14 10:56] LABS: Glucose, Whole Blood 208 mg/dL (60-115)
[2022-03-14 11:44] VITALS: BP 118/75; PULSE 98; RESP 20; TEMP 36.7; O2SAT 98
[2022-03-14 14:04] VITALS: PULSE 96; O2SAT 90
[2022-03-14 16:00] VITALS: BP 128/70; PULSE 91; RESP 19; TEMP 36.4; O2SAT 98
[2022-03-14 17:16] LABS: Glucose, Whole Blood 154 mg/dL (60-115)
[2022-03-14 19:21] LABS: Glucose, Whole Blood 275 mg/dL (60-115)
[2022-03-14] MEDS: Acetaminophen 325 MG TABLET 650 MG PO (19:35)
[2022-03-14 23:56] VITALS: BP 139/86; PULSE 87; RESP 15; TEMP 36.8; O2SAT 100
[2022-03-15] MEDS: Enoxaparin Sodium 40 MG/0.4 ML SYRINGE SUBCUT (06:21)
[2022-03-15 07:27] LABS: Glucose, Whole Blood 135 mg/dL (60-115)
[2022-03-15 07:40] VITALS: BP 132/82; PULSE 82; RESP 18; TEMP 36.4; O2SAT 99
[2022-03-15] MEDS: Insulin Lispro 100 UNIT/ML 3 ML VIAL SUBCUT ×5 (08:17→23:05)
[2022-03-15] MEDS: Nicotine 21 MG PATCH.TD24 TRANSDERMA (08:18)
[2022-03-15] MEDS: Aspirin Enteric Coated 81 MG TABLET.DR PO (08:19)
[2022-03-15] MEDS: Atorvastatin Calcium 80 MG TABLET PO (08:19)
[2022-03-15] MEDS: glipiZIDE 10 MG TABLET PO ×2 (08:19→16:32)
[2022-03-15] MEDS: Folic Acid 1 MG TABLET PO (08:19)
[2022-03-15] MEDS: metFORMIN HCl 1,000 MG TABLET 1000 MG PO ×2 (08:19→16:32)
[2022-03-15] MEDS: Thiamine HCL 100 MG TABLET PO ×2 (09:28→23:05)
[2022-03-15 10:07] LABS: Creatinine Clr Calc Pharmacy 95.5; Estimated Glomerular Filt Rate > 60
[2022-03-15 10:58] LABS: Glucose, Whole Blood 165 mg/dL (60-115)
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
[2022-03-15 15:47] VITALS: BP 126/80; PULSE 97; RESP 18; TEMP 36.6; O2SAT 100
[2022-03-15 16:05] LABS: Glucose, Whole Blood 121 mg/dL (60-115)
[2022-03-15 20:53] LABS: Glucose, Whole Blood 124 mg/dL (60-115)
[2022-03-15] MEDS: Acetaminophen 325 MG TABLET 650 MG PO (23:05)
[2022-03-15 23:48] VITALS: BP 123/74; PULSE 94; RESP 14; TEMP 36.7; O2SAT 99
[2022-03-16] MEDS: Enoxaparin Sodium 40 MG/0.4 ML SYRINGE SUBCUT (05:58)
[2022-03-16 07:16] VITALS: BP 140/84; PULSE 81; RESP 17; TEMP 36.3; O2SAT 99
[2022-03-16 07:39] LABS: Glucose, Whole Blood 120 mg/dL (60-115)
[2022-03-16] MEDS: Nicotine 21 MG PATCH.TD24 TRANSDERMA (07:50)
[2022-03-16] MEDS: metFORMIN HCl 1,000 MG TABLET 1000 MG PO ×2 (07:51→16:58)
[2022-03-16] MEDS: Folic Acid 1 MG TABLET PO (07:51)
[2022-03-16] MEDS: glipiZIDE 10 MG TABLET PO ×2 (07:51→16:58)
[2022-03-16] MEDS: Aspirin Enteric Coated 81 MG TABLET.DR PO (07:51)
[2022-03-16] MEDS: Thiamine HCL 100 MG TABLET PO ×2 (07:51→20:46)
[2022-03-16] MEDS: Atorvastatin Calcium 80 MG TABLET PO (07:51)
[2022-03-16] MEDS: Insulin Lispro 100 UNIT/ML 3 ML VIAL SUBCUT ×7 (07:52→20:47)
[2022-03-16 11:36] LABS: Glucose, Whole Blood 166 mg/dL (60-115)
--- NOTE | 2022-03-16 12:54 | MHC.CM.PN ---
per rounds pt medically clear for dc dc plan remains rehab
--- NOTE | 2022-03-16 13:44 | MHC.CM.PN ---
chart will be sent to [facility] for their consideration
--- NOTE | 2022-03-16 14:01 | MHC.CM.PN ---
gen[facility] lopes to ask if they are doing a bed search for pt as pt and ot have dcd the pt
--- NOTE | 2022-03-16 14:09 | MHC.CM.PN ---
spoke with pt who wants to go to a sober house he says that he has been waiting to go to [facility] asked to resee pt,pt and ot have dcd pt they no longer are recommending str
[2022-03-16 15:41] VITALS: BP 132/75; PULSE 98; RESP 16; TEMP 36.7; O2SAT 98
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
[2022-03-16 16:00] VITALS: BP 132/75; PULSE 98; RESP 16; TEMP 36.7; O2SAT 98
[2022-03-16 16:37] LABS: Glucose, Whole Blood 168 mg/dL (60-115)
[2022-03-16 20:06] VITALS: BP 127/70; PULSE 99; RESP 15; TEMP 36.9; O2SAT 97
[2022-03-16 20:32] LABS: Glucose, Whole Blood 238 mg/dL (60-115)
[2022-03-16] MEDS: Acetaminophen 325 MG TABLET 650 MG PO (20:49)
[2022-03-16 23:33] VITALS: BP 143/67; PULSE 87; RESP 13; TEMP 36.7; O2SAT 96
[2022-03-17] MEDS: Enoxaparin Sodium 40 MG/0.4 ML SYRINGE SUBCUT (05:52)
[2022-03-17 07:43] LABS: Glucose, Whole Blood 209 mg/dL (60-115)
[2022-03-17] MEDS: Nicotine 21 MG PATCH.TD24 TRANSDERMA (07:57)
[2022-03-17] MEDS: Folic Acid 1 MG TABLET PO (07:58)
[2022-03-17] MEDS: glipiZIDE 10 MG TABLET PO ×2 (07:58→17:01)
[2022-03-17] MEDS: Insulin Lispro 100 UNIT/ML 3 ML VIAL SUBCUT ×8 (07:58→21:02)
[2022-03-17] MEDS: Thiamine HCL 100 MG TABLET PO ×2 (07:58→21:02)
[2022-03-17] MEDS: Atorvastatin Calcium 80 MG TABLET PO (07:58)
[2022-03-17] MEDS: metFORMIN HCl 1,000 MG TABLET 1000 MG PO ×2 (07:58→17:01)
[2022-03-17] MEDS: Aspirin Enteric Coated 81 MG TABLET.DR PO (07:58)
[2022-03-17 08:00] VITALS: BP 148/62; PULSE 94; RESP 18; TEMP 36.3; O2SAT 97
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
[2022-03-17 11:23] LABS: Glucose, Whole Blood 157 mg/dL (60-115)
--- NOTE | 2022-03-17 15:05 | MHC.RECOVRN ---
This telegraphic typewriter operator chief met with patient, patient alert, sitting in bed watching t.v. Patient request referral to [facility] level of care. Patient reports went to detox/css in the past. Patient reports drinking for a long time, 30 beers plus daily. Referrals placed to [facility], [facility] and [facility]. T/W and patient reviewed the plan, t/w to place referrals, if needed, patient to f/u in the community with [facility] referrals. Patient states has a cell phone, likely to stay at [facility]. Patient agreeable. CM aware.
[2022-03-17 15:26] VITALS: BP 135/95; PULSE 99; RESP 18; TEMP 36.6; O2SAT 99
[2022-03-17 16:45] LABS: Glucose, Whole Blood 167 mg/dL (60-115)
[2022-03-17 20:49] LABS: Glucose, Whole Blood 161 mg/dL (60-115)
[2022-03-17] MEDS: Acetaminophen 325 MG TABLET 650 MG PO (21:07)
[2022-03-17 23:55] VITALS: BP 156/84; PULSE 80; RESP 16; TEMP 36.6; O2SAT 98
[2022-03-18] MEDS: Enoxaparin Sodium 40 MG/0.4 ML SYRINGE SUBCUT (05:33)
[2022-03-18 07:30] LABS: Glucose, Whole Blood 139 mg/dL (60-115)
[2022-03-18 07:55] VITALS: BP 152/78; PULSE 80; RESP 16; TEMP 36.8; O2SAT 98
[2022-03-18] MEDS: Thiamine HCL 100 MG TABLET PO ×2 (08:18→21:01)
[2022-03-18] MEDS: metFORMIN HCl 1,000 MG TABLET 1000 MG PO ×2 (08:18→16:18)
[2022-03-18] MEDS: Atorvastatin Calcium 80 MG TABLET PO (08:18)
[2022-03-18] MEDS: Folic Acid 1 MG TABLET PO (08:18)
[2022-03-18] MEDS: Nicotine 21 MG PATCH.TD24 TRANSDERMA (08:19)
[2022-03-18] MEDS: Aspirin Enteric Coated 81 MG TABLET.DR PO (08:19)
[2022-03-18] MEDS: glipiZIDE 10 MG TABLET PO ×2 (08:21→16:18)
[2022-03-18 11:13] LABS: Glucose, Whole Blood 210 mg/dL (60-115)
[2022-03-18] MEDS: Insulin Lispro 100 UNIT/ML 3 ML VIAL SUBCUT ×6 (11:30→21:02)
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
--- NOTE | 2022-03-18 13:38 | MHC.RECOVRN ---
This lead technical writer f/u with [facility] referrals, [facility]. This lead technical writer to provide contact list for patient to follow up with CSS referrals from the community. CM aware.
[2022-03-18 15:18] VITALS: BP 131/69; PULSE 88; RESP 15; TEMP 36.7; O2SAT 97
[2022-03-18 15:48] LABS: Glucose, Whole Blood 172 mg/dL (60-115)
[2022-03-18 20:54] LABS: Glucose, Whole Blood 320 mg/dL (60-115)
[2022-03-18] MEDS: Acetaminophen 325 MG TABLET 650 MG PO (21:01)
[2022-03-18 23:22] VITALS: BP 143/78; PULSE 93; RESP 18; TEMP 36.7; O2SAT 99
[2022-03-19 07:13] VITALS: BP 136/77; PULSE 82; RESP 16; TEMP 36.4; O2SAT 99
[2022-03-19 07:38] LABS: Glucose, Whole Blood 157 mg/dL (60-115)
[2022-03-19] MEDS: Insulin Lispro 100 UNIT/ML 3 ML VIAL SUBCUT ×8 (07:48→22:01)
[2022-03-19] MEDS: Nicotine 21 MG PATCH.TD24 TRANSDERMA (07:49)
[2022-03-19] MEDS: Thiamine HCL 100 MG TABLET PO ×2 (07:50→22:00)
[2022-03-19] MEDS: Aspirin Enteric Coated 81 MG TABLET.DR PO (07:50)
[2022-03-19] MEDS: Folic Acid 1 MG TABLET PO (07:50)
[2022-03-19] MEDS: glipiZIDE 10 MG TABLET PO ×2 (07:50→16:35)
[2022-03-19] MEDS: metFORMIN HCl 1,000 MG TABLET 1000 MG PO ×2 (07:50→16:35)
[2022-03-19] MEDS: Atorvastatin Calcium 80 MG TABLET PO (07:50)
[2022-03-19 10:59] LABS: Glucose, Whole Blood 157 mg/dL (60-115)
[2022-03-19 15:30] LABS: Glucose, Whole Blood 265 mg/dL (60-115)
[2022-03-19 15:40] VITALS: BP 129/77; PULSE 95; RESP 18; TEMP 36.6; O2SAT 98
[2022-03-19 20:33] LABS: Glucose, Whole Blood 196 mg/dL (60-115)
[2022-03-19] MEDS: Acetaminophen 325 MG TABLET 650 MG PO (22:03)
[2022-03-20] VITALS: BP 130/74; PULSE 97; RESP 18; TEMP 36.9; O2SAT 100
[2022-03-20] MEDS: Enoxaparin Sodium 40 MG/0.4 ML SYRINGE SUBCUT (06:41)
[2022-03-20 07:31] LABS: Glucose, Whole Blood 308 mg/dL (60-115)
[2022-03-20 07:32] VITALS: BP 128/71; PULSE 87; RESP 16; TEMP 36.3; O2SAT 97
[2022-03-20] MEDS: Insulin Lispro 100 UNIT/ML 3 ML VIAL SUBCUT ×8 (07:45→21:22)
[2022-03-20] MEDS: Nicotine 21 MG PATCH.TD24 TRANSDERMA (07:46)
[2022-03-20] MEDS: Atorvastatin Calcium 80 MG TABLET PO (07:46)
[2022-03-20] MEDS: metFORMIN HCl 1,000 MG TABLET 1000 MG PO ×2 (07:46→17:32)
[2022-03-20] MEDS: Aspirin Enteric Coated 81 MG TABLET.DR PO (07:46)
[2022-03-20] MEDS: Thiamine HCL 100 MG TABLET PO ×2 (07:47→21:22)
[2022-03-20] MEDS: Folic Acid 1 MG TABLET PO (07:47)
[2022-03-20] MEDS: glipiZIDE 10 MG TABLET PO ×2 (07:47→17:32)
[2022-03-20 11:05] LABS: Glucose, Whole Blood 298 mg/dL (60-115)
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
[2022-03-20 15:58] LABS: Glucose, Whole Blood 151 mg/dL (60-115)
[2022-03-20 15:59] VITALS: BP 137/102; PULSE 94; RESP 19; TEMP 36.7; O2SAT 96
[2022-03-20 19:47] LABS: Glucose, Whole Blood 248 mg/dL (60-115)
[2022-03-20] MEDS: Acetaminophen 325 MG TABLET 650 MG PO (21:30)
[2022-03-20 23:44] VITALS: BP 121/72; PULSE 87; RESP 16; TEMP 36.7; O2SAT 98
[2022-03-21 03:06] VITALS: BP 138/88; PULSE 88; RESP 14; TEMP 36.7; O2SAT 97
[2022-03-21] MEDS: Enoxaparin Sodium 40 MG/0.4 ML SYRINGE SUBCUT (05:21)
[2022-03-21 07:29] VITALS: BP 135/80; PULSE 76; RESP 16; TEMP 36.2; O2SAT 100
[2022-03-21 07:50] LABS: Glucose, Whole Blood 200 mg/dL (60-115)
[2022-03-21] MEDS: Atorvastatin Calcium 80 MG TABLET PO (08:29)
[2022-03-21] MEDS: Thiamine HCL 100 MG TABLET PO (08:29)
[2022-03-21] MEDS: Folic Acid 1 MG TABLET PO (08:29)
[2022-03-21] MEDS: metFORMIN HCl 1,000 MG TABLET 1000 MG PO (08:29)
[2022-03-21] MEDS: glipiZIDE 10 MG TABLET PO (08:29)
[2022-03-21] MEDS: Aspirin Enteric Coated 81 MG TABLET.DR PO (08:29)
[2022-03-21] MEDS: Nicotine 21 MG PATCH.TD24 TRANSDERMA (08:30)
[2022-03-21] MEDS: Insulin Lispro 100 UNIT/ML 3 ML VIAL SUBCUT ×3 (08:33→12:14)
[2022-03-21 11:29] LABS: Glucose, Whole Blood 129 mg/dL (60-115)
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
== END 2022-03-21 15:00 | disposition skilled nursing facility (03) | DRG 64 ==
LOC: HO.ED 21:42 → HO.EDOVER 03-01 06:15 → HO.IMC 03-01 14:13
PROVIDERS: Internal Medicine; Nurse Practitioner Family; Physician Assistant; Admitting Provider Internal Medicine; Emergency Provider Internal Medicine; Visit Provider Internal Medicine
DX: I63.81 Other cerebral infarction due to occlusion or stenosis of small artery (principal); G92.8 Other toxic encephalopathy; F17.210 Nicotine dependence, cigarettes, uncomplicated; M79.671 Pain in right foot; F10.10 Alcohol abuse, uncomplicated; E11.65 Type 2 diabetes mellitus with hyperglycemia; G89.21 Chronic pain due to trauma; R79.89 Other specified abnormal findings of blood chemistry; Z20.822 Contact with and (suspected) exposure to COVID-19; Z88.5 Allergy status to narcotic agent; Z88.8 Allergy status to other drugs, medicaments and biological substances; F10.97 Alcohol use, unspecified with alcohol-induced persisting dementia; Z79.4 Long term (current) use of insulin; Z79.82 Long term (current) use of aspirin; Z79.84 Long term (current) use of oral hypoglycemic drugs; Z79.899 Other long term (current) drug therapy
CPT/HCPCS: 36415; 70450; 70551; 71045; 73610; 73630; 80048; 80061; 80076; 80307; 81001; 82077; 82140; 82565; 82947; 83036; 83605; 83735; 83880; 84484; 85025; 85610; 87040; 87502; 87635; 93005; 93306; 93880; 93971; 97112; 97116; 97162; 97166; 97530; 97535; 99285; J0696; J1650; J3411